=== PATIENT | male | born 1970 ===

== ENCOUNTER 2017-02-22 16:20 | Emergency (ER) | payer SELFPAY ==
[2017-02-22 16:39] VITALS: BP 161/96
[2017-02-22] MEDS ORDERED: Tetan/Diph/Pertus SYR(Tdap)* 0.5 ML SYR(BOOSTRIX) use SYR IM ONE (17:07)
--- NOTE | 2017-02-22 18:14 | UC ---
Rupal Becker Erika, scribed for Nery Falcon DO on 02/22/17 at 1727 . Skin Complaint HPI - HPI Summary HPI Summary: Patient is a 46-year-old male presenting to [facility] with a CC of a puncture wound to the right third finger. Patient reports that yesterday, he was working with old floor boards when an old staple cut the finger. Patient is unsure how deep the staple went. Pt reports the finger bled. He does report very mild swelling to the area, and states there is 1/10 pain that is aggravated by touch. He states normal ROM and full strength. He denies any other symptoms including fever, chills, diaphoresis, sore throat, and cough. Patient states last tetanus shot was . Patient denies PMHx. He states he is adopted and does not know his FHx. 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 - History of Current Complaint Chief Complaint: [facility] Time Seen by Provider: 02/22/17 17:04 Stated Complaint: BROOKS STAPLE FINGER INJ-YESTERDAY Hx Obtained From: Patient Onset/Duration: Sudden Onset, Lasting Days - 1 day, Still Present Timing: Constant Onset Severity: Mild Current Severity: Mild Pain Intensity: 1 Pain Scale Used: 0-10 Numeric Location: Hand (Right) - 3rd finger Character: Swelling, Pain Aggravating: Touch Alleviating: Nothing Associated Signs & Symptoms: Positive: Tenderness - minimal. Negative: Diaphoresis, Fever, Chills, Cough, Drainage, Red Streaks, Joint Swelling - Allergy/Home Medications Allergies/Adverse Reactions: Allergies Allergy/AdvReac Type Severity Reaction Status Date / Time No Known Allergies Allergy Verified 06/30/14 07:41 Home Medications: Home Medications Kava (Piper Methysticum) [Kava Kava Root] 1,000 mg PO 02/22/17 [History] Review of Systems Constitutional: Negative Skin: Other - puncture wound to the right third finger with slight swelling Eyes: Negative ENT: Negative Respiratory: Negative Cardiovascular: Negative Gastrointestinal: Negative Genitourinary: Negative Motor: Negative Neurovascular: Negative Musculoskeletal: Negative Neurological: Negative Psychological: Negative All Other Systems Reviewed And Are Negative: Yes PMH/Surg Hx/FS Hx/Imm Hx Previously Healthy: Yes Endocrine History Of: Denies: Diabetes Cardiovascular History Of: Denies: Hypertension - Surgical History Surgical History: None - Family History Known Family History: Positive: Unknown - Patient is adopted - Social History Occupation: Employed Full-time Alcohol Use: Rare Substance Use Type: None Smoking Status (MU): Never Smoked Tobacco - Immunization History Most Recent Influenza Vaccination: N/A Most Recent Tetanus Shot: NA Most Recent Pneumonia Vaccination: NA Physical Exam Triage Information Reviewed: Yes Appearance: Well-Appearing, No Pain Distress, Well-Nourished Vital Signs: Initial Vital Signs Temp 98.1 F 02/22/17 16:35 Pulse 57 02/22/17 16:35 Resp 18 02/22/17 16:35 BP 161/96 02/22/17 16:35 Pulse Ox 100 02/22/17 16:35 Vital Signs Reviewed: Yes Eyes: Positive: Conjunctiva Clear. Negative: Discharge ENT: Positive: Hearing grossly normal. Negative: Muffled/hoarse voice Neck: Positive: Supple, Nontender Respiratory: Positive: Lungs clear, Normal breath sounds, No respiratory distress, No accessory muscle use Cardiovascular: Positive: RRR, No Murmur Musculoskeletal Exam: Normal Musculoskeletal: Positive: Strength Intact - good tendon strength in injured digit Neurological: Positive: Alert, Muscle Tone Normal Psychological Exam: Normal Psychological: Positive: Age Appropriate Behavior Skin Exam: Other - Warm, dry, normal color Skin: Positive: Other - Puncture wound over the DIP of his right middle finger. No redness, swelling, drainage, or callor Course/Dx - Differential Diagnoses - Skin Complaint Differential Diagnoses: Cellulitis, Other - wound infection, p.w. - Diagnoses Provider Diagnoses: 1. Puncture wound Discharge - Discharge Plan Condition: Stable Disposition: HOME Patient Education Materials: Diphtheria/Acellular Pertussis/Tetanus Booster Vaccine (Tdap) (Injection), Puncture Wound (ED) Referrals: No Primary Care Phys,NOPCP [Primary Care Provider] - Additional Instructions: Please return to convenient care for any redness, swelling, increased pain, or drainage to the area. FOLLOW-UP CARE: You should establish with a private physician for follow-up care. If you are unable to get a timely appointment, or if you are worsening, call us or return for re-evaluation. An additional resource available to assist in finding the appropriate physician for your health care needs is the [facility]ician Referral Center. You may contact them by calling [phone]. The documentation as recorded by the Rupal mcguire Erika accurately reflects the service I personally performed and the decisions made by me, Nery Falcon DO.
== END 2017-02-22 17:47 | disposition home or self-care (01) ==
LOC: UCEAST 16:20
DX: S61.232A Puncture wound without foreign body of right middle finger without damage to nail, initial encounter (principal); W26.8XXA Contact with other sharp object(s), not elsewhere classified, initial encounter; Y93.89 Activity, other specified; Y92.9 Unspecified place or not applicable; Z23 Encounter for immunization
CPT/HCPCS: 90715; 96372; 99211; G0463

== ENCOUNTER → 2017-04-18 23:29 | Emergency (ER) | payer SELFPAY ==
[2017-04-18 23:41] VITALS: BP 139/89
--- NOTE | 2017-04-19 00:40 | ED ---
Sue Becker Salem, scribed for David Gonzalez MD on 04/19/17 at 0027 . Psychiatric Complaint - HPI Summary HPI Summary: Patient is a 46 y/o M who presents to the ED per EMS with a psychiatric complaint. He states that he got into a [place] and she called the police because of his hx. Pt denies SI or HI. He states that he has not had more EtOH than his typical. - History Of Current Complaint Chief Complaint: EDGeneral Time Seen by Provider: 04/19/17 00:17 Hx Obtained From: Patient Onset/Duration: Gradual Onset, Lasting Hours, Still Present Timing: Constant Severity Initially: Moderate Severity Currently: Moderate Aggravating Factor(s): Nothing Alleviating Factor(s): Nothing Associated Signs And Symptoms: Positive: Negative Has Suicidal: Denies: Thoughts Has Homicidal: Denies: Thoughts - Allergies/Home Medications Allergies/Adverse Reactions: Allergies Allergy/AdvReac Type Severity Reaction Status Date / Time No Known Allergies Allergy Verified 06/30/14 07:41 PMH/Surg Hx/FS Hx/Imm Hx Endocrine/Hematology History: Denies: Hx Diabetes Cardiovascular History: Denies: Hx Hypertension Psychiatric History: Denies: Hx Eating Disorder Infectious Disease History: No Infectious Disease History: Denies: Traveled Outside the [place] in Last 30 Days - Family History Known Family History: Positive: Unknown - Patient is adopted - Social History Alcohol Use: Rare Hx Substance Use: No Substance Use Type: Reports: None Hx Tobacco Use: No Smoking Status (MU): Never Smoked Tobacco Review of Systems Negative: Fever Positive: Other - See HPI. All Other Systems Reviewed And Are Negative: Yes Physical Exam Triage Information Reviewed: Yes Vital Signs On Initial Exam: Initial Vitals Temp Pulse Resp BP Pulse Ox 97.7 F 109 20 139/89 98 04/18/17 23:32 04/18/17 23:32 04/18/17 23:32 04/18/17 23:32 04/18/17 23:32 Vital Signs Reviewed: Yes Appearance: Positive: Well-Appearing, No Pain Distress Skin: Positive: Warm, Skin Color Reflects Adequate Perfusion, Dry Head/Face: Positive: Normal Head/Face Inspection Eyes: Positive: EOMI, BHAVIN Neck: Positive: Supple, Nontender Respiratory/Lung Sounds: Positive: Clear to Auscultation, Breath Sounds Present Cardiovascular: Positive: RRR Abdomen Description: Positive: Nontender, Soft Bowel Sounds: Positive: Present Musculoskeletal: Positive: Normal, Strength/ROM Intact Neurological: Positive: Normal, Sensory/Motor Intact, Alert, Oriented to Person Place, Time Diagnostics - Vital Signs Vital Signs Temp Pulse Resp BP Pulse Ox 04/18/17 23:32 97.7 F 109 20 139/89 98 - Laboratory Lab Statement: Any lab studies that have been ordered have been reviewed, and results considered in the medical decision making process. Course/Dx - Course Course Of Treatment: NO CRITICAL CARE TIME. PATIENT DENIES SI/HI. STATES HE FEELS SAFE TO GO HOME. CLEAR SENSORIUM. DISCHARGE HOME STABLE. - Differential Dx/Clinical Impression Provider Diagnosis: Normal exam Discharge - Discharge Plan Condition: Stable Disposition: HOME Referrals: No Primary Care Phys,NOPCP [Primary Care Provider] - Additional Instructions: FOLLOW UP WITH YOUR DOCTOR. RETURN TO THE EMERGENCY DEPARTMENT FOR ANY WORSENING OF YOUR CONDITION OR QUESTIONS OR CONCERNS. The documentation as recorded by the Sue mcguire Salem accurately reflects the service I personally performed and the decisions made by , David Gonzalez MD.
== END | disposition home or self-care (01) ==
LOC: ED 23:29
DX: Z00.8 Encounter for other general examination (principal)
CPT/HCPCS: 99282